=== PATIENT | female | born 1995 | race Hispanic/Latino ===

== ENCOUNTER 2017-12-27 00:27 | Emergency (ER) | payer SELFPAY ==
[2017-12-27 01:10] LABS: Bilirubin Negative (Negative); Blood, Urine Large (Negative); Clarity CLOUDY (Clear); Glucose, Urine (Dipstick) Negative (Negative); Leukocyte Small (Negative); Nitrite Negative (Negative); Protein, Urine (Dipstick) 30 mg/dL (Neg-Trace); Specific Gravity, Urine 1.023 (1.002-1.036); Urobilinogen 0.2 mg/dL (0.2-1.0)
[2017-12-27 01:14] LABS: Bacteria/HPF 1+ HPF (None Seen); Hyaline Casts/LPF 0-3 HYALINE CAST LPF (0-3 Hyaline); Pathc Cast-AUWi Flag 0.14 (0-2.49); RBC/HPF GREATER THAN 50-TNTC HPF (0-3)
[2017-12-27 01:43] LABS: #Eosinphils 0.1 thou/uL (0.0-0.7); #Lymphocytes 2.1 thou/uL (1.20-3.40); #Monocytes 0.7 thou/uL (0.11-0.59); #Neutrophils 8.6 thou/uL (1.40-6.50); %Basophils 0.3 % (0.0-1.0); %Eosinophils 0.9 % (0.0-10.0); %Neutrophils 74.8 % (42.0-75.0); Hemoglobin 12.9 g/dL (12.0-16.0); Mean Corpuscular HGB CONC 35.1 g/dL (32.0-36.0); Mean Corpuscular Hemoglobin 29.8 pg (27.0-31.0); Mean Corpuscular Volume 84.8 fL (78.0-98.0); Mean Platelet Volume 8.2 fL (7.4-10.4); Platelet Count 230 thou/uL (130-400); RBC Distribution Width 11.5 % (11.5-14.5); Red Blood Cell (RBC) Count 4.32 mill/uL (4.20-5.40); White Blood Cell (WBC) Count 11.4 thou/uL (4.8-10.8)
[2017-12-27 02:00] LABS: BHCG - Serum Negative (NEGATIVE); Pregs Control Background? CLEAR/WHITE (CLR/WHITE); Pregs Control Bar Appear? YES (CONTROL BAR)
[2017-12-27 02:05] LABS: ALT (SGPT) 12 U/L (8-55); AST (SGOT) 13 U/L (5-34); Albumin 4.3 g/dL (3.5-5.0); Alkaline Phosphatase 107 U/L (40-150); Anion Gap 12 mmol/L (10-20); BUN (Urea Nitrogen) 14 mg/dL (7.0-18.7); Bilirubin, Total 0.3 mg/dL (0.2-1.2); Calc. Creatinine Clearance 0 mL/min (70-130); Calcium 9.5 mg/dL (7.8-10.44); Carbon Dioxide 25 mmol/L (22-29); Chloride 107 mmol/L (98-107); Estimated GFR-MDRD 69; Globulin 3.2 g/dL (2.4-3.5); Glucose 121 mg/dL (70-105); Lipase 30 U/L (8-78); Potassium 3.5 mmol/L (3.5-5.1); Protein, Total 7.5 g/dL (6.0-8.3); Sodium 140 mmol/L (136-145)
[2017-12-27] MEDS ORDERED: Ketorolac Tromethamine 30 MG/ML VIAL ONE (02:08)
--- NOTE | 2017-12-27 08:41 | CT ---
PRELIMINARY REPORT/[facility]/EMERGENTY AFTER-HOURS PROCEDURE CT Abdomen and Pelvis Without Intravenous Contrast CLINICAL HISTORY: 22 years old, female; Pain; Abdominal pain; Patient HX: [id number] presents to ed via ems transfer from [facility] for evaluation for rosc, asthma exacerbation. 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 Coronal refo rmatted images were created and reviewed. COMPARISON: No relevant prior studies available. FINDINGS: Lung bases: There is subpleural atelectasis of the dependent portions of the lungs. ABDOMEN: Liver: The liver is within normal limits for this noncontrast study. Gallbladder and bile ducts: The gallbladder is contracted but otherwise normal. No calcified stones. No ductal dilation. Pancreas: There is trace fullness of the pancreas with haziness possibly representing mild pancreatit is. No ductal dilation. Spleen: The spleen is normal. Adrenals: The adrenal glands are normal. Kidneys and ureters: There is a 3 x 3 x 4 mm distal LEFT ureter/UVJ obstructing calculus with associa debora mild LEFT hydronephrosis. The right kidney is normal. Stomach and bowel: The stomach is normal. The duodenum is unremarkable. The colon is normal. No obstruction. No mucosal thickening. PELVIS: Appendix: A normal appendix is identified. Bladder: The bladder is normal. No stones. Reproductive: Uterus is normal. An IUD is present. ABDOMEN and PELVIS: Intraperitoneal space: Normal. No free air. No significant fluid collection. Bones/joints: No acute fracture. No dislocation. Soft tissues: Normal. Vasculature: Normal. No abdominal aortic aneurysm. Lymph nodes: Normal. No enlarged lymph nodes. IMPRESSION: 1. There is a 3 x 3 x 4 mm distal LEFT ureter/UVJ obstructing calculus with associated mild LEFT hydr onephrosis. 2. There is trace fullness of the pancreas with haziness possibly representing mild pancreatitis. Cor relation with lipase values is advised. Thank you for allowing us to participate in the care of your patient. Dictated and Authenticated by: Heriberto Mejía MD 12/27/2017 4:22 AM Central Time ([place] & [place]) FINAL REPORT CT ABDOMEN AND PELVIS NONCONTRAST: DATE: 12/27/17. TIME: Performed on an emergency basis at 0245 hours. HISTORY: Left flank pain. FINDINGS: Agree with the preliminary report by Dr. Pitts from [facility]. Partial obstruction at a 4 m m left ureterovesicular junction calculus. Subtle haziness surrounding the pancreas may not be clini luz significant. Gallbladder is decompressed. POS: NICHELLE
== END 2017-12-27 05:03 | disposition home or self-care (01) ==
LOC: ERS 00:27
DX: N13.2 Hydronephrosis with renal and ureteral calculous obstruction (principal)
CPT/HCPCS: 74176; 80053; 81003; 81015; 83690; 84703; 85025; 96361; 96374; J1885

== ENCOUNTER 2019-07-03 03:00 | Inpatient (IN) | payer OTHER, SELFPAY ==
--- NOTE | 2019-07-02 19:20 | PDOC.LDHP ---
Labor and Delivery H&P HPI: 23 yo who presents for medical mgmt of 14 week MAB. Pt denies any discharge , pain or VB. She desires full evaluation to determine cause for 2nd trimester loss. Current gestational age (weeks): 14 Dating criteria: last menstrual period Grav: 2 Para: 1 OB History Details: 1 LTCS for arrest of dilation Current complications: other (missed ) Abnormal US findings: Yes (absent CA ) Past Medical History: Denies Current medications: pre- vitamins Previous surgical history: low tranverse CS Allergies/Adverse Reactions: Allergies Allergy/AdvReac Type Severity Reaction Status Date / Time No Known Allergies Allergy Verified 07/03/19 04:03 Social history: none - Physical Exam Vital signs reviewed and normal: yes General: NAD Heart: RRR Lungs: nonlabored breathing Abdomen: gravid Extremeties: no edema - Vaginal Exam cm dilated: 2 (per last RN check ) Effacement: 25% Station: -2 - OB Labs Blood type: O RH: positive Antibody Screen: negative HIV: negative RPR: negative HEPSAg: negative Urine drug screen: negative Rubella: immune - Assessment 14 week MAB H/O LTCS - Plan Plan: admit to L&D, informed consent obtained, anesthesia consult for pain management -: Cytotec mgmt for 14 week MAB, 400 mcg PV q 3 hrs.
[2019-07-03] MEDS ORDERED: Promethazine HCl 25 MG/ML VIAL IM PRN (03:35)
[2019-07-03] MEDS ORDERED: Ondansetron PF 4 MG/2 ML Vial IVP PRN (03:35)
[2019-07-03] MEDS ORDERED: Diphenoxylate HCl/Atropine Tablet PO PRN (03:35)
[2019-07-03] MEDS ORDERED: hydrALAZINE 20 MG/ML VIAL SLOW IVP PRN (03:35)
[2019-07-03] MEDS ORDERED: Lactated Ringer's 1,000 ML IV SCH (03:35)
[2019-07-03] MEDS ORDERED: Misoprostol 200 MCG TAB PR PRN (03:35)
[2019-07-03] MEDS ORDERED: HYDROcodone/Acetaminophen 5/325 mg Tablet PO PRN (03:35)
[2019-07-03] MEDS ORDERED: Acetaminophen 500 MG TAB PO PRN (03:35)
[2019-07-03] MEDS ORDERED: Methylergonovine 0.2 MG/ML VIAL IM PRN (03:35)
[2019-07-03] MEDS ORDERED: Ibuprofen 800 MG TAB PO PRN (03:35)
[2019-07-03] MEDS ORDERED: Lidocaine 1% (PF) 30 ML VIAL SC PRN (03:35)
[2019-07-03] MEDS ORDERED: Butorphanol Tartrate 1 MG/ML VIAL SLOW IVP PRN (03:35)
[2019-07-03] MEDS ORDERED: NS / Oxytocin 40 units/1000ml 1,000 ML IV PRN (03:35)
[2019-07-03] MEDS ORDERED: Carboprost 250 MCG/ML AMP IM PRN (03:35)
[2019-07-03 03:47] VITALS: BP 110/66; TEMP 98.3; BMI 31.0
[2019-07-03] MEDS: Misoprostol 100 MCG TAB VAG SCH ×3 (04:23→15:27)
[2019-07-03 04:24] LABS: Hemoglobin 12.4 g/dL (12.0-16.0); Mean Corpuscular Hemoglobin 30.1 pg (27.0-31.0); Mean Corpuscular Volume 86.1 fL (78.0-98.0); Mean Platelet Volume 8.4 fL (7.4-10.4); Platelet Count 182 thou/uL (130-400); RBC Distribution Width 11.5 % (11.5-14.5); Red Blood Cell (RBC) Count 4.12 mill/uL (4.20-5.40); White Blood Cell (WBC) Count 8.7 thou/uL (4.8-10.8)
[2019-07-03 04:36] LABS: Hemoglobin A1c 4.5 % (4.0-6.0)
[2019-07-03 05:16] LABS: HBSAg Index 0.14 S/CO (0-0.99); HIV (1/2) Antibody/Antigen Non-Reactive (NonReactive); HIV 1/2 INDEX 0.24 S/CO (<1.00); Hep B Surf Ag Non-Reactive S/CO (NonReactive)
[2019-07-03 05:34] LABS: Syphilis Antibody Nonreactive (Nonreactive); Syphilis Antibody Index 0.04 S/CO (<1.00 Non-Reactive)
[2019-07-03] MEDS ORDERED: NS / Oxytocin 40 units/1000ml 0 ML ONE (08:40)
--- NOTE | 2019-07-03 08:51 | PDOC.OPDEL ---
OB Operative/Delivery Note Delivery Dr/Surgeon: Haylee Lino Pre-Delivery Diagnosis: other (14 week MAB) - Findings A Weight: 1.093 oz - Additional Findings/Plan Estimated blood loss: 345 cc Compilations/Other Findings: Approc 14-15 week MAB delivered, approx 31 g Placenta still in situ Approx 345 cc EBL at delivery Plan to monitor by weighing pads until delivery of placenta. If bleeding persists or is heavy will perform D&C.
--- NOTE | 2019-07-03 09:14 | PDOC.EVN ---
Event Note - Event Note Event Note: Pt continued to have bleeding, now total of 979 cc with placenta still in situ. Take to OR for emergent D&C. Anesthesia and OR aware. 4 units ordered if needed. Pt was given cytotec 300 PO now as well.
[2019-07-03] MEDS ORDERED: Fentanyl 100 MCG/2 ML VIAL ONE (09:25)
[2019-07-03] MEDS ORDERED: Oxytocin 10 UNITS/ML VIAL ONE (09:40)
[2019-07-03] MEDS ORDERED: Acetaminophen 325 MG/10.15 ML UDCUP PO PRN (11:44)
[2019-07-03] MEDS ORDERED: Doxycycline 100 MG CAP PO SCH (11:44)
[2019-07-03 12:43] LABS: #Lymphocytes 1.1 thou/uL (1.20-3.40); #Monocytes 0.3 thou/uL (0.11-0.59); #Neutrophils 14.9 thou/uL (1.40-6.50); %Eosinophils 0.2 % (0.0-10.0); %Lymphocytes 6.6 % (21.0-51.0); %Monocytes 1.9 % (0.0-10.0); %Neutrophils 91.3 % (42.0-75.0); Hemoglobin 10.5 g/dL (12.0-16.0); Mean Corpuscular HGB CONC 34.5 g/dL (32.0-36.0); Mean Corpuscular Hemoglobin 29.7 pg (27.0-31.0); Mean Platelet Volume 8.8 fL (7.4-10.4); Platelet Count 185 thou/uL (130-400); RBC Distribution Width 11.3 % (11.5-14.5); Red Blood Cell (RBC) Count 3.52 mill/uL (4.20-5.40); White Blood Cell (WBC) Count 16.3 thou/uL (4.8-10.8)
--- NOTE | 2019-07-03 13:27 | PDOC.EVN ---
Event Note - Event Note Event Note: Pt has had minimal bleeding since her D&C. VSS. Hbg 10. Denies any dizziness. UOP wnl. Desires Anora testing also. Plan to ambulation and assessment of sx. If asx will plan to d/c this afternoon.
[2019-07-03] MEDS ORDERED: Dexamethasone 20 MG/5 ML VIAL ONE (13:58)
[2019-07-03] MEDS ORDERED: PROPOFOL 200 MG/20 ML VIAL ONE (13:58)
[2019-07-03] MEDS ORDERED: Glycopyrrolate 0.2 MG/ML 5 ML SYRINGE ONE (13:58)
[2019-07-03] MEDS ORDERED: Rocuronium Bromide 10 MG/ML (10ML VIAL) ONE (13:58)
[2019-07-03] MEDS ORDERED: Ondansetron PF 4 MG/2 ML Vial ONE (13:58)
[2019-07-03] MEDS ORDERED: Lidocaine 1% PF 5 ML VIAL ONE (13:59)
[2019-07-03 14:46] LABS: DRVVT Confirm 32.4; DRVVT Ratio 0.8 Ratio (1.2 or Less)
[2019-07-03 15:00] LABS: Cardiolipin IgG Ab 1.6 GPL-U/mL (<10 Negative); Cardiolipin IgM Ab 2.1 MPL-U/mL (<10 Negative); EliA APS New Method **** NEW METHOD ****; beta-2-Glycoprotein I IgG Ab 1.2 U/mL (<7 Negative); beta-2-Glycoprotein I IgM Abs Less than 2.9 U/mL (<7 Negative)
--- NOTE | 2019-07-03 17:24 | PDOC.EVN ---
Event Note - Event Note Event Note: Pt feeling well. Minimal bleeding. Pt has ambulated without any dizziness. She also has voided and tolerated a regular diet. Plan for d/c home this evening with f/u in clinic. ED warnings reviewed.
--- NOTE | 2019-07-03 22:45 | DIS ---
DATE OF ADMISSION: 07/03/2019 DATE OF DISCHARGE: 07/03/2019 ADMISSION DIAGNOSIS: 14-week missed . DISCHARGE DIAGNOSES: 1. Status post medical management of 14-week and required emergent dilation and curettage for retained placenta. 2. hemorrhage. BRIEF HOSPITAL COURSE: Ms. Ketty Hamilotn is a 23-year-old, G2, P1, who presented for medical management of a 14-week missed . The patient received 2 doses of Cytotec and then had delivery of the 14-week fetus at approximately 8:30 this morning. Shortly after delivery, she had a hemorrhage of a total of approximately 900 mL within 25 minutes after delivery. The patient was then taken down to the operating room for an emergent D and C. Suction D and C was completed. The EBL during the D and C was approximately 150 totaling 1200 mL. The patient was then brought back to Labor and Delivery for continued observation. Her hemoglobin is approximately 10. Her vital signs have been stable. She is asymptomatic when ambulating. Denies any dizziness, palpitations, or shortness of breath. She has had minimal to scant bleeding since her procedure and her pain is minimal as well. The patient overall is meeting all requirements at this point postoperatively and she would like to be discharged home this evening. We will plan for followup shortly and strict ER warnings reviewed with the patient. FOLLOWUP: Follow up in 1-2 weeks in clinic. MEDICATIONS: 1. Motrin 800 mg one tablet every 8 hours p.r.n. pain. 2. Ferrous sulfate 325 mg one tablet twice a day, #60 with 2 refills. ACTIVITY RESTRICTIONS: Pelvic rest. DIET: Regular. Job ID: [id number]
--- NOTE | 2019-07-06 11:18 | OP ---
DATE OF PROCEDURE: 07/03/2019 PREOPERATIVE DIAGNOSES: 1. Status post delivery of 14-week fetus with a missed . 2. Acute hemorrhage with retained placenta. POSTOPERATIVE DIAGNOSES: 1. Status post delivery of 14-week fetus with a missed . 2. Acute hemorrhage with retained placenta. PROCEDURES PERFORMED: Suction dilation and curettage. ESTIMATED BLOOD LOSS: EBL from the procedure is 150 mL. Total EBL was approximately 1200 mL from delivery, , and intraoperatively. URINARY OUTPUT: 50 mL. IV FLUIDS: The patient received IV fluid bolus approximately 1000 mL during the surgery. FINDINGS: Placental tissue at the cervical os with acute bleeding. Control of postoperative hemorrhage after completion of suction dilation and curettage. INDICATIONS FOR THE PROCEDURE: Ms. Ketty Hamilton is a 23-year-old, G2, P1, who presented to clinic on 07/01/2019 with a diagnosis of a 14-week missed . The patient was counseled and medical management was recommended in the hospital. The patient underwent management with vaginal Cytotec and after 2 doses, she then delivered the 14-week fetus. After the fetus was delivered, the placenta still remained in situ. The patient was observed and within approximately 25 minutes, the patient did have approximately 1000 mL blood loss in total. Therefore, an emergent D and C was recommended and the patient was amenable. PROCEDURE IN DETAIL: The patient was brought to the operating room. She was placed under general anesthesia and placed in dorsal lithotomy position using candy-cane stirrups. She was prepped and draped in a sterile fashion. She was given Ancef for surgical prophylaxis. A weighted speculum was placed in the posterior aspect of the vagina. There were products of conception within the vagina and in the cervical canal. Initial products were removed using a ring forceps. The ring forceps was then also inserted into the cervical os and removed large portions of the placenta. A 10 mm suction curettage was then inserted into the uterine cavity, activated and removed additional placental tissue. Several passes of the suction curettage were performed, and a sharp curettage was then performed as well to ensure gritty texture throughout. At the completion of the suction dilation and curettage, there was a gritty texture noted with minimal bleeding. The tenaculum was then removed from the cervix and tenaculum site was hemostatic. The remainder of the instruments were removed from the vagina. The patient was placed back in supine position. She was then extubated without difficulty. She was given 40 units of Pitocin within her IV fluid and was given Cytotec preoperatively. The patient was then transferred back to Labor and Delivery for continued observation. Job ID: [id number]
== END 2019-07-03 17:45 | disposition home or self-care (01) | DRG 770 ==
LOC: OBSVTOIN 03:03 → L&D 03:03 → INTOOBSV 03:03
PROVIDERS: ADMIT Obstetrics & Gynecology; ATTEND Obstetrics & Gynecology
PROC: 10D17ZZ Extraction of Products of Conception, Retained, Via Natural or Artificial Opening (ICD-10-PCS; principal; 2019-07-03)
PROC: 3E0P7VZ Introduction of Hormone into Female Reproductive, Via Natural or Artificial Opening (ICD-10-PCS; 2019-07-03)
DX: O02.1 Missed abortion (principal); O72.1 Other immediate postpartum hemorrhage
CPT/HCPCS: 36415; 83036; 84443; 85027; 85613; 86146; 86147; 86780; 86850; 86900; 86901; 87340; 87389; 88305; J0595; J1100; J2001; J2405; J2590; J2704; J3010